=== PATIENT | male | born 1935 | race Caucasian/White ===

== ENCOUNTER 2018-03-01 04:36 | Inpatient (IN) | payer MEDICARE, BC ==
[~2018-03-01] VITALS: Ht 182.9 cm; Wt 81.1 kg
[~2018-03-01 04:36] MED LIST: ALEVE 220MG220 MG PO; ALPHA LIPOIC A200 MG PO; ASPIRIN 32325 MG/TAB PO; ASPIRIN E.C. 8181 MG PO; ATENOLOL50 MG PO; ATIVAN 1MG T1 MG/TAB PO; CARDI-OMEGA1000 MG PO; CO Q 10; CO Q-1010 M1 PO; CO Q-1050 MG PO; COLACE 100100 MG/CAP PO; COQ10 IN OIL 101 SGL PO; COUMADIN 3MG3 MG/TAB PO; DIABETA 5MG5 MG/TAB PO; DULCOLAX TAB5 MG PO; DULCOLAX10 MG RC; DYNACIN100 M1 PO; ECOTRIN325 MG PO; EVENING PRIMROSE; FISH OIL CONC1000 MG PO; FOLIC ACID; GLUCOPHAGE500 MG/TAB PO; GLYBURIDE MICRON3 MG PO; HCTZ; HCTZ 25MG TAB25 MG PO; JANUVIA 100MG100 MG PO; LASIX 40MG TABL40 MG PO; LEVAQUIN 5500 MG/TA1 PO; LIPITOR20 MG PO; LISINOPRIL20 MG PO; LORTAB 5/500 501 TAB PO; LORTAB 7.5/5001 TAB PO; MILK OF MA400 MG/51 PO; MINOCYCLIN100 MG/CAP PO; MYLANTA 150 ML150 M1 PO; NEURONTIN300 MG/CAP PO; NORCO 325 MG-7.1 TAB PO; OMEGA 31000 MG PO; PLAVIX 75MG TAB75 MG PO; PRILOSEC 20MG20 MG PO; PRIMROSE OILE500 MG PO; PROBIOTICA100 Milli1 PO; SLEEP AID50 MG PO; SYNTHROID0.05 MG/TA PO; SYNTHROID0.075 MG/T PO; TENORMIN100 MG PO; TETRACYCLINE 250MG PO; TYLENOL 325MG325 MG PO; ULTRAM 50MG TAB50 MG PO; VANCOMYCIN 11 G/VIA1 IV; VESICARE 5MG5 MG PO; VITAMIN C PUR1000 MG PO; VITAMIN C1 TAB PO; VITAMIN D; VITAMIN D5000 IU PO; ZESTRIL40 MG PO; ZITHROMAX 250M250 MG PO; ZYLOPRIM 300MG300 MG PO; alpha lipoic acid; bilberry PO; ginko biloba; pine bark
[2018-03-01 06:01] LABS: BASO # 0.1 (0.0-0.2); BASO % 0.6 % (0.0-2.0); EOS # 0.1 (0.0-0.7); EOS % 1.5 % (0-4.0); GRAN # 5.8 (1.4-6.5); GRAN % 71.2 % (42.2-75.2); HEMATOCRIT 38.3 % (42.0-52.0); HEMOGLOBIN 12.6 g/dl (13.5-18.0); LYMPH # 1.2 (1.2-3.4); LYMPH % 14.7 % (20.0-51.0); MEAN CELL VOLUME 96 fl (80.0-100.0); MEAN CORPUSCULAR HEMOGLOBIN 32 pg (27.0-31.0); MEAN CORPUSCULAR HGB CONC 33 g/dl (33.0-37.0); MONO # 0.9 (0.1-0.6); MONO % 11.5 % (1.7-9.3); PLATELET COUNT 138 K/mm3 (130-400); RED BLOOD COUNT 3.99 M/mm3 (4.20-5.60); REDCELL DISTRIBUTION WIDTH-CV 16.5 % (11.5-14.5)
[2018-03-01 06:11] LABS: ALBUMIN 2.8 gm/dL (3.5-5.0); BILIRUBIN,TOTAL 0.8 mg/dL (0.0-1.0); CALCIUM 9.7 mg/dL (8.4-10.2); CREATININE, serum 1.23 mg/dL (0.66-1.25); POTASSIUM 4.4 mmol/L (3.4-5.0); TOTAL PROTEIN 5.5 gm/dL (6.4-8.2)
[2018-03-01 06:22] LABS: TROPONIN-I 0.014 ng/mL (0.000-0.034)
[2018-03-01 07:43] VITALS: BP 116/72; PULSE 71; TEMP 98
[2018-03-01] MEDS ORDERED: MULTIVITAMIN1 CTB PO (09:35)
[2018-03-01] MEDS ORDERED: UNISOM25 MG PO (09:36)
[2018-03-01] MEDS ORDERED: B-121000 MCG PO (09:37)
[2018-03-01] MEDS ORDERED: ZOFRAN 4MG T4 MG/TAB PO (09:38)
[2018-03-01 09:42] LABS: INR 1.2 (0.8-3.0); PROTHROMBIN TIME 13.4 SECONDS (9.7-12.8)
[2018-03-01 11:22] LABS: COLLECTION METHOD CATHETER
[2018-03-01 11:32] LABS: MUCOUS Present /lpf; PH 5 (5-8); SQUAMOUS EPITHELIAL 0-2 /hpf; URINE APPEARANCE Hazy; URINE BACTERIA None Seen /hpf; URINE BILIRUBIN Negative (NEGATIVE); URINE BLOOD 3+ (NEGATIVE); URINE COLOR Amber; URINE GLUCOSE Negative (NEGATIVE); URINE KETONE Negative (NEGATIVE); URINE LEUKOCYTE ESTERASE Negative (NEGATIVE); URINE NITRATE Negative (NEGATIVE); URINE PROTEIN(semi-quant) 1+ (NEGATIVE); URINE RBC >50 /hpf; URINE UROBILINOGEN Negative (NEGATIVE)
[2018-03-01 11:44] VITALS: BP 116/72; PULSE 71; TEMP 98
[2018-03-01 12:02] VITALS: BP 111/73; PULSE 70; TEMP 97.6
[2018-03-01 16:06] LABS: HEMATOCRIT 32.8 % (42.0-52.0); HEMOGLOBIN 10.5 g/dl (13.5-18.0); MEAN CELL VOLUME 101 fl (80.0-100.0); MEAN CORPUSCULAR HEMOGLOBIN 32 pg (27.0-31.0); MEAN CORPUSCULAR HGB CONC 32 g/dl (33.0-37.0); MEAN PLATELET VOLUME 12.7 fl (7.4-10.4); PLATELET COUNT 103 K/mm3 (130-400); RED BLOOD COUNT 3.25 M/mm3 (4.20-5.60); REDCELL DISTRIBUTION WIDTH-CV 16.9 % (11.5-14.5)
[2018-03-01 16:17] LABS: ALBUMIN 1.8 gm/dL (3.5-5.0); BILIRUBIN,TOTAL 0.6 mg/dL (0.0-1.0); CALCIUM 8.1 mg/dL (8.4-10.2); CREATININE, serum 1.28 mg/dL (0.66-1.25); POTASSIUM 3.9 mmol/L (3.4-5.0); TOTAL PROTEIN 3.8 gm/dL (6.4-8.2)
[2018-03-01 16:19] LABS: ARTERIAL BLD GAS O2 SATURATION 88.5 % (92-100); ARTERIAL BLD GAS TCO2 CT 18.9; ARTERIAL BLOOD GAS BASE EXCESS -10.2 (-2-2); ARTERIAL BLOOD GAS HCO3 17.5 meq/L (22-26); ARTERIAL BLOOD GAS PCO2 46.2 mmHg (35-45); ARTERIAL BLOOD GAS PO2 69.7 mmHg (80-100)
[2018-03-01 16:23] LABS: PHOSPHOROUS 6.4 mg/dL (2.5-4.5)
[2018-03-01 16:30] VITALS: BP 102/85; PULSE 78; TEMP 96.8
[2018-03-01 16:30] LABS: ANISOCYTOSIS 1+; BAND 7 % (0-10); LYMPHOCYTE 15 % (20.0-51.0); NEUTROPHILS 78 % (42.0-75.2); PLATELET ESTIMATE NORMAL (NORMAL)
[2018-03-01 16:35] LABS: ARTERIAL BLD GAS TCO2 CT 18.5; ARTERIAL BLOOD GAS BASE EXCESS -15.6 (-2-2); ARTERIAL BLOOD GAS HCO3 16.4 meq/L (22-26); ARTERIAL BLOOD GAS PO2 92.7 mmHg (80-100)
[2018-03-01 16:36] LABS: ARTERIAL BLOOD GAS PCO2 70.3 mmHg (35-45); ARTERIAL BLOOD GAS pH 6.99 (7.35-7.45)
[2018-03-01 16:59] LABS: INR 1.4 (0.8-3.0)
== END 2018-03-01 21:20 | disposition expired | DRG 469 ==
LOC: COL.ER 04:36 → SURG 06:15 → ICU 16:58
PROVIDERS: Emergency Medicine; Internal Medicine; Nurse Practitioner Family; Orthopaedic Surgery
PROC: 0SRS0J9 Replacement of Left Hip Joint, Femoral Surface with Synthetic Substitute, Cemented, Open Approach (ICD-10-PCS; principal; 2018-03-01 14:00)
DX: S72.042A Displaced fracture of base of neck of left femur, initial encounter for closed fracture (principal); J96.01 Acute respiratory failure with hypoxia; J96.02 Acute respiratory failure with hypercapnia; I50.23 Acute on chronic systolic (congestive) heart failure; E46 Unspecified protein-calorie malnutrition; Z51.5 Encounter for palliative care; Z66 Do not resuscitate; E87.4 Mixed disorder of acid-base balance; N17.9 Acute kidney failure, unspecified; I11.0 Hypertensive heart disease with heart failure; W18.30XA Fall on same level, unspecified, initial encounter; E11.9 Type 2 diabetes mellitus without complications; I25.10 Atherosclerotic heart disease of native coronary artery without angina pectoris; Z95.5 Presence of coronary angioplasty implant and graft; I48.0 Paroxysmal atrial fibrillation; I48.91 Unspecified atrial fibrillation; Z87.891 Personal history of nicotine dependence
CPT/HCPCS: C1776; J0171; J0282; J0690; J1100; J1940; J2250; J2270; J2370; J2704; J3010; J7030; J7050; J7060